=== PATIENT | female | born 1980 | race Two or more races ===

== ENCOUNTER 2020-10-16 15:53 | Emergency (ER) | payer MEDICAID, OTHER ==
[~2020-10-16] VITALS: Ht 152.4 cm; Wt 83.8 kg
--- NOTE | 2020-10-16 16:00 | NUR ---
NO ANSWER IN LOBBY
--- NOTE | 2020-10-16 16:30 | NUR ---
NO ANSWER IN LOBBY.
[2020-10-16 17:08] VITALS: BP 115/88
[2020-10-16] MEDS ORDERED: ACETAMINOPHEN 325 MG TABLET ONE (17:17)
[2020-10-16] MEDS ORDERED: ACETAMINOPHEN 325 MG TABLET PO ONE (17:30)
--- NOTE | 2020-10-16 19:36 | NUR ---
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
[2020-10-16] MEDS ORDERED: IBUPROFEN 600 MG TABLET PO ONE (20:30)
[2020-10-16] MEDS ORDERED: IBUPROFEN 600 MG TABLET ONE (20:50)
--- NOTE | 2020-10-16 20:52 | NUR ---
Patient/Caregiver given discharge instructions and they have confirmed that they understand the instructions. Patient ambulatory with steady gait.
== END 2020-10-16 21:17 | disposition home or self-care (01) ==
LOC: ED 16:23
DX: S16.1XXA Strain of muscle, fascia and tendon at neck level, initial encounter (principal); S13.4XXA Sprain of ligaments of cervical spine, initial encounter; R51.9 Headache, unspecified; V49.49XA Driver injured in collision with other motor vehicles in traffic accident, initial encounter; Y93.89 Activity, other specified; Y92.488 Other paved roadways as the place of occurrence of the external cause; Y99.8 Other external cause status
CPT/HCPCS: 99283